=== PATIENT | male | born 1945 | race Caucasian/White ===

== ENCOUNTER 2018-02-25 06:45 | Day surgery (SDC) | payer MEDICARE ==
[~2018-02-25] VITALS: Ht 177.8 cm; Wt 133.0 kg
[2018-02-25] VITALS (20 sets, daily range): BP systolic 93–140; BP diastolic 45–83
[~2018-02-25 06:45] MED LIST: BUDE10.2 INH; COU4T PO; DILT360C29 PO; FURO40TA4 PO; METO50TA7 PO; POTA20TA10 PO; SIMV40TA4 PO
[2018-02-25] MEDS ORDERED: fentaNYL/PF 50MCG/1 ML 2ML syringe IV ONE (07:05)
[2018-02-25] MEDS ORDERED: normal saline 1000ml 1,000 ML IV SCH (07:05)
[2018-02-25] MEDS ORDERED: MIDAZolam 5mg/ml 2ml vial IV ONE (07:05)
[2018-02-25] MEDS ORDERED: DIGO125T PO (07:19)
[2018-02-25] MEDS ORDERED: TIOT18CA3 INH (07:19)
[2018-02-25] MEDS ORDERED: DABI150C PO (07:19)
[2018-02-25] MEDS ORDERED: AMIO200T40 PO (07:19)
[2018-02-25] MEDS ORDERED: IPRA4AER IH (07:19)
[2018-02-25] MEDS ORDERED: ALLO100T PO (07:19)
[2018-02-25] MEDS ORDERED: VERA240T PO (07:19)
[2018-02-25] MEDS ORDERED: PIRO20CA2 PO (07:19)
[2018-02-25] MEDS ORDERED: FLO0.4C PO (07:19)
[2018-02-25 07:46] LABS: BASOPHILS % (AUTO) 0.3 % (0-1); EOSINOPHILS # (AUTO) 0.1 X10'3 (0-0.9); EOSINOPHILS % (AUTO) 2.5 % (0-6); HEMATOCRIT 44.2 % (42.0-52.0); HEMOGLOBIN 14.7 g/dl (14.0-17.9); LYMPHOCYTES # (AUTO) 0.8 X10'3 (1.1-4.8); LYMPHOCYTES % (AUTO) 14.4 % (21-51); MEAN CORPUSCULAR HEMOGLOBIN 31.6 PG (27.0-31.0); MEAN CORPUSCULAR HGB CONC 33.3 % (33.0-36.5); MEAN CORPUSCULAR VOLUME 94.8 FL (78-98); MEAN PLATELET VOLUME 9.8 FL (7.4-10.4); MONOCYTES # (AUTO) 0.7 X10'3 (0-0.9); NEUTROPHILS # (AUTO) 3.7 X10'3 (1.8-7.7); NEUTROPHILS % (AUTO) 69.8 % (42-75); PLATELET COUNT 142 X10'3 (140-440); RED BLOOD COUNT 4.67 X10'6 (4.70-6.10); RED CELL DISTRIBUTION WIDTH 17.1 % (11.5-14.5); WHITE BLOOD COUNT 5.4 X10'3 (4.5-11.0)
[2018-02-25 07:53] LABS: INR 1.5 INR; PROTHROMBIN TIME 15.1 SECONDS (9.0-12.0)
[2018-02-25 08:05] LABS: ALBUMIN 3.6 G/DL (3.4-5.0); ANION GAP 10 (8-16); BLOOD UREA NITROGEN 27 MG/DL (7-18); BUN/CREATININE RATIO 15.3 (5.4-32.0); CALCIUM 8.7 MG/DL (8.5-10.1); CHLORIDE 104 MMOL/L (99-107); CREATININE 1.77 MG/DL (0.60-1.10); GLUCOSE 124 MG/DL (70-104); MAGNESIUM 2.1 MG/DL (1.5-2.4); POTASSIUM 3.8 MMOL/L (3.5-5.1); SODIUM 140 MMOL/L (135-145); TOTAL CARBON DIOXIDE 25.8 MMOL/L (24-32); eGFR 38 ML/MIN
== END 2018-02-25 11:42 | disposition home or self-care (01) ==
LOC: SSTAY O 06:45
PROVIDERS: ATTEND Internal Medicine Cardiovascular Disease
DX: I48.91 Unspecified atrial fibrillation (principal); J44.9 Chronic obstructive pulmonary disease, unspecified; G47.30 Sleep apnea, unspecified; Z85.46 Personal history of malignant neoplasm of prostate; Z85.118 Personal history of other malignant neoplasm of bronchus and lung; Z85.51 Personal history of malignant neoplasm of bladder; Z87.891 Personal history of nicotine dependence; Z98.49 Cataract extraction status, unspecified eye; Z79.899 Other long term (current) drug therapy; Z98.890 Other specified postprocedural states
CPT/HCPCS: 36415; 80048; 83735; 85025; 85610; 92960; 93005; J2250; J3010

== ENCOUNTER 2018-07-11 05:39 | Day surgery (SDC) | payer MEDICARE ==
[2018-07-11] VITALS (14 sets, daily range): BP systolic 98–173; BP diastolic 45–102
[~2018-07-11] VITALS: Ht 177.8 cm; Wt 174.0 kg
[~2018-07-11 05:39] MED LIST changes: +ALLO100T PO; +AMIO200T40 PO; -COU4T PO; +DABI150C PO; +DIGO125T PO; -DILT360C29 PO; +FLO0.4C PO; +IPRA4AER IH; -METO50TA7 PO; +PIRO20CA2 PO; +TIOT18CA3 INH; +VERA240T PO
[2018-07-11] MEDS ORDERED: diphenhydrAMINE 25mg capsule PO PRN (06:10)
[2018-07-11] MEDS ORDERED: sod bicarbonate 150mEq in D5W 1,150 ML IV ONE (06:10)
[2018-07-11 07:35] LABS: BASOPHILS % (AUTO) 1.1 % (0-1); EOSINOPHILS # (AUTO) 0.1 X10'3 (0-0.9); EOSINOPHILS % (AUTO) 3.5 % (0-6); HEMATOCRIT 38.2 % (42.0-52.0); HEMOGLOBIN 12.7 g/dl (14.0-17.9); LYMPHOCYTES # (AUTO) 0.5 X10'3 (1.1-4.8); LYMPHOCYTES % (AUTO) 11.5 % (21-51); MEAN CORPUSCULAR HEMOGLOBIN 31.2 PG (27.0-31.0); MEAN CORPUSCULAR HGB CONC 33.1 g/dL (33.0-36.5); MEAN CORPUSCULAR VOLUME 94.2 FL (78-98); MEAN PLATELET VOLUME 9.5 FL (7.4-10.4); MONOCYTES # (AUTO) 0.6 X10'3 (0-0.9); MONOCYTES % (AUTO) 14.3 % (2-12); NEUTROPHILS # (AUTO) 2.9 X10'3 (1.8-7.7); NEUTROPHILS % (AUTO) 69.6 % (42-75); PLATELET COUNT 155 X10'3 (140-440); RED BLOOD COUNT 4.05 X10'6 (4.70-6.10); RED CELL DISTRIBUTION WIDTH 15.6 % (11.5-14.5); WHITE BLOOD COUNT 4.2 X10'3 (4.5-11.0)
[2018-07-11 07:46] LABS: ANION GAP 9 (8-16); BLOOD UREA NITROGEN 25 MG/DL (7-18); BUN/CREATININE RATIO 18.1 (5.4-32.0); CALCIUM 8.4 MG/DL (8.5-10.1); CHLORIDE 109 MMOL/L (99-107); CREATININE 1.38 MG/DL (0.60-1.10); GLUCOSE 135 MG/DL (70-104); SODIUM 142 MMOL/L (135-145); TOTAL CARBON DIOXIDE 24.5 MMOL/L (24-32); eGFR 51 ML/MIN
[2018-07-11 07:49] LABS: INR 1.1 INR; PROTHROMBIN TIME 11.5 SECONDS (9.0-12.0)
[2018-07-11] MEDS ORDERED: LIDOcaine 1% (10mg/ml)w/preservative injection 20ml MDV ONE (07:55)
[2018-07-11] MEDS ORDERED: fentaNYL/PF 50MCG/1 ML 2ML syringe ONE (07:55)
[2018-07-11] MEDS ORDERED: midazolam 2 mg/2 ml injection ONE ×3 (07:55→08:45)
[2018-07-11] MEDS ORDERED: iohexol 350 MG/ML 50ML vial IV ONE (07:55)
[2018-07-11] MEDS ORDERED: iohexol 350MG/ML 100ml bottle IV ONE (07:55)
[2018-07-11] MEDS ORDERED: ALBU8.5H8 INH (07:57)
== END 2018-07-11 15:30 | disposition home or self-care (01) ==
LOC: SSTAY O 05:39
PROVIDERS: ATTEND Internal Medicine Cardiovascular Disease
DX: I35.0 Nonrheumatic aortic (valve) stenosis (principal); J44.9 Chronic obstructive pulmonary disease, unspecified; I48.2 Chronic atrial fibrillation; G47.30 Sleep apnea, unspecified; Z85.51 Personal history of malignant neoplasm of bladder; Z85.118 Personal history of other malignant neoplasm of bronchus and lung; Z98.890 Other specified postprocedural states; Z79.899 Other long term (current) drug therapy; Z98.49 Cataract extraction status, unspecified eye; Z87.891 Personal history of nicotine dependence
CPT/HCPCS: 36415; 80048; 83735; 85025; 85610; 93460; 99152; 99153; A6257; J1644; J2001; J2250; J3010; Q0163; Q9967; 93005; A4620; C1760; C1769; C1894

== ENCOUNTER 2020-10-15 06:10 | Day surgery (SDC) | payer MEDICARE ==
[~2020-10-15] VITALS: Ht 177.8 cm; Wt 132.0 kg
[2020-10-15] VITALS (10 sets, daily range): BP systolic 123–169; BP diastolic 72–95
[~2020-10-15 06:10] MED LIST changes: +ALBU8.5H8 INH; -AMIO200T40 PO; -FLO0.4C PO; -IPRA4AER IH; +SIMV-45 PO; -SIMV40TA4 PO
[2020-10-15] MEDS ORDERED: diphenhydrAMINE 25mg capsule PO PRN (06:35)
[2020-10-15] MEDS ORDERED: normal saline 1,000 ML IV SCH (06:35)
[2020-10-15 07:07] LABS: BASOPHILS % (AUTO) 0.8 % (0-1); EOSINOPHILS # (AUTO) 0.2 X10'3 (0-0.9); EOSINOPHILS % (AUTO) 3.8 % (0-6); HEMATOCRIT 42.8 % (42.0-52.0); HEMOGLOBIN 14.3 g/dl (14.0-17.9); LYMPHOCYTES # (AUTO) 0.5 X10'3 (1.1-4.8); MEAN CORPUSCULAR HEMOGLOBIN 31.8 PG (27.0-31.0); MEAN CORPUSCULAR HGB CONC 33.4 g/dL (33.0-36.5); MEAN CORPUSCULAR VOLUME 95.1 FL (78-98); MEAN PLATELET VOLUME 9.9 FL (7.4-10.4); MONOCYTES # (AUTO) 0.6 X10'3 (0-0.9); MONOCYTES % (AUTO) 13.5 % (2-12); NEUTROPHILS # (AUTO) 3.2 X10'3 (1.8-7.7); NEUTROPHILS % (AUTO) 70.9 % (42-75); PLATELET COUNT 104 X10'3 (140-440); RED CELL DISTRIBUTION WIDTH 15.1 % (11.5-14.5); WHITE BLOOD COUNT 4.5 X10'3 (4.5-11.0)
[2020-10-15] MEDS ORDERED: AMIO200T61 PO (07:11)
[2020-10-15] MEDS ORDERED: ASPI81TA52 PO (07:11)
[2020-10-15] MEDS ORDERED: METO50TA17 PO (07:11)
[2020-10-15] MEDS ORDERED: FURO-150 PO (07:11)
[2020-10-15] MEDS ORDERED: Amlodipine PO (07:11)
[2020-10-15] MEDS ORDERED: PANT40TA54 PO (07:11)
[2020-10-15] MEDS ORDERED: FLO0.4C PO (07:11)
[2020-10-15 07:13] LABS: ALBUMIN 3.8 G/DL (3.4-5.0); ANION GAP 11 (8-16); BLOOD UREA NITROGEN 29 MG/DL (7-18); BUN/CREATININE RATIO 16.5 (5.4-32.0); CALCIUM 8.7 MG/DL (8.5-10.1); CHLORIDE 107 MMOL/L (99-107); CREATININE 1.76 MG/DL (0.60-1.10); GLUCOSE 98 MG/DL (70-104); MAGNESIUM 2.1 MG/DL (1.5-2.4); POTASSIUM 4.2 MMOL/L (3.5-5.1); SODIUM 143 MMOL/L (135-145); TOTAL CARBON DIOXIDE 24.8 MMOL/L (24-32); eGFR 38 ML/MIN
[2020-10-15] MEDS ORDERED: sodium bicarbonate (8.4%) inj. 150 ML in dextrose 5%-water 1,000 ML IV ONE (07:40)
[2020-10-15] MEDS ORDERED: midazolam 1 mg/ML 2ml injection ONE ×5 (08:47→09:59)
[2020-10-15] MEDS ORDERED: LIDOcaine 1% W/epiNEPHrine 1:100,000 20ml vial ONE (08:48)
[2020-10-15] MEDS ORDERED: iohexol 350 MG/ML 50ML vial IV ONE (08:48)
[2020-10-15] MEDS ORDERED: fentaNYL/PF 50MCG/1 ML 2ML syringe ONE (08:48)
[2020-10-15] MEDS ORDERED: iohexol 350MG/ML 100ml bottle IV ONE ×2 (08:48→09:47)
[2020-10-15] MEDS ORDERED: LIDOcaine 1% (10mg/ml)w/preservative injection 20ml MDV ONE (08:51)
[2020-10-15] MEDS ORDERED: proCHLORperazine 10 MG/2 ml inj ONE (09:58)
[2020-10-15] MEDS ORDERED: HYDROcodone/acetaminophen 10/325mg tab PO PRN (11:20)
[2020-10-15] MEDS ORDERED: normal saline 1000ml 1,000 ML IV SCH (11:20)
[2020-10-15] MEDS ORDERED: proCHLORperazine 10 MG/2 ml inj IV PRN (11:20)
[2020-10-15] MEDS ORDERED: ondansetron/PF 4mg/2ml inj IV PRN (11:20)
[2020-10-15] MEDS ORDERED: HYDROcodone/acetaminophen 5mg/325mg tablet PO PRN (11:20)
== END 2020-10-15 15:40 | disposition home or self-care (01) ==
LOC: SSTAY O 06:10
PROVIDERS: ATTEND Internal Medicine Cardiovascular Disease
DX: I70.211 Atherosclerosis of native arteries of extremities with intermittent claudication, right leg (principal); J44.9 Chronic obstructive pulmonary disease, unspecified; I48.20 Chronic atrial fibrillation, unspecified; N18.30 Chronic kidney disease, stage 3 unspecified; G47.30 Sleep apnea, unspecified; E66.01 Morbid (severe) obesity due to excess calories; Z68.41 Body mass index [BMI] 40.0-44.9, adult; Z87.891 Personal history of nicotine dependence; Z79.899 Other long term (current) drug therapy; Z85.51 Personal history of malignant neoplasm of bladder; Z85.46 Personal history of malignant neoplasm of prostate; Z85.118 Personal history of other malignant neoplasm of bronchus and lung; Z98.890 Other specified postprocedural states; Z98.41 Cataract extraction status, right eye
CPT/HCPCS: 36415; 37220; 80048; 83735; 85025; 85610; 93005; 99152; 99153; C1760; C1769; C1894; J0780; J1644; J2001; J2250; J3010; Q0163; Q9967; 75630; A4620; A6258

== ENCOUNTER 2020-10-22 07:27 | Day surgery (SDC) | payer MEDICARE ==
[~2020-10-22] VITALS: Ht 193 cm; Wt 133.0 kg
[~2020-10-22 07:27] MED LIST changes: +AMIO200T61 PO; +ASPI81TA52 PO; +Amlodipine PO; -DIGO125T PO; +FLO0.4C PO; +FURO-150 PO; -FURO40TA4 PO; +METO50TA17 PO; +PANT40TA54 PO; -PIRO20CA2 PO; -VERA240T PO
[2020-10-22] MEDS ORDERED: sodium bicarbonate (8.4%) inj. 150 ML in dextrose 5%-water 1,000 ML IV ONE (07:50)
[2020-10-22 08:00] VITALS: BP 120/73
[2020-10-22] MEDS ORDERED: iohexol 350 MG/ML 50ML vial IV ONE (09:13)
[2020-10-22] MEDS ORDERED: iohexol 350MG/ML 100ml bottle IV ONE (09:14)
[2020-10-22 10:50] VITALS: BP 161/84
[2020-10-22 13:52] VITALS: BP 125/71
== END 2020-10-22 14:00 | disposition home or self-care (01) ==
LOC: SSTAY O 07:27
PROVIDERS: ATTEND Internal Medicine Cardiovascular Disease
DX: I70.213 Atherosclerosis of native arteries of extremities with intermittent claudication, bilateral legs (principal); I83.91 Asymptomatic varicose veins of right lower extremity; I51.7 Cardiomegaly
CPT/HCPCS: 75635; Q9967

== ENCOUNTER 2020-12-15 08:15 | Emergency (ER) | payer OTHER, MEDICARE ==
[~2020-12-15] VITALS: Ht 177.8 cm; Wt 180.0 kg
[~2020-12-15 08:15] MED LIST changes: +ALBU8.5H17 INH; -ALBU8.5H8 INH; -ALLO100T PO; +ALLO300T8 PO; -AMIO200T61 PO; -Amlodipine PO; -FLO0.4C PO; -FURO-150 PO; -POTA20TA10 PO; +VERA120T2 PO
[2020-12-15 08:35] VITALS: BP 122/75
[2020-12-15] MEDS ORDERED: LIDOcaine 2% 10ml TOPICAL JELLY (Urojet) TP ONE (09:45)
[2020-12-15 10:39] LABS: CLARITY,URINE SLIGHTLY CLOUDY (Clear); COLOR,URINE YELLOW (Yellow); GLUCOSE, URINE NEGATIVE (Neg); KETONES,URINE NEGATIVE (Neg); LEUKOCYTE ESTERASE ,URINE NEGATIVE (Neg); NITRITES, URINE NEGATIVE (Neg); OCCULT BLOOD,URINE TRACE-LYSED (Neg); PH,URINE 6.5 (4.8-8.0); PROTEIN,URINE NEGATIVE (Neg)
[2020-12-15 10:44] LABS: UA COLLECTION TYPE FOLEY CATH
[2020-12-15 10:45] LABS: MUCUS STRANDS MANY /LPF (Neg); SQUAMOUS EPITHELIAL CELL,UR FEW /LPF (FEW)
[2020-12-15 10:47] LABS: BACTERIA,URINE NONE SEEN /HPF (Neg); RBC,URINE 0-2 /HPF (0-2); TRANSITIONAL EPI CELLS,URINE FEW /HPF; WBC,URINE 0-4 /HPF (0-4)
[2020-12-16] MEDS ORDERED: POTA10TA36 PO (06:00)
[2020-12-16] MEDS ORDERED: FURO-150 PO (06:00)
== END 2020-12-15 11:23 | disposition home or self-care (01) ==
LOC: ER 08:16
DX: N50.89 Other specified disorders of the male genital organs (principal); R33.9 Retention of urine, unspecified; R42 Dizziness and giddiness; R10.30 Lower abdominal pain, unspecified; Z79.82 Long term (current) use of aspirin; Z79.899 Other long term (current) drug therapy
CPT/HCPCS: 51702; 81001; 99284

== ENCOUNTER 2020-12-16 04:09 | Emergency (ER) | payer OTHER, MEDICARE ==
[~2020-12-16] VITALS: Ht 177.8 cm; Wt 129.6 kg
[2020-12-16 04:10] VITALS: BP 119/68
[2020-12-16 04:28] LABS: BASOPHILS % (AUTO) 0.4 % (0-1); EOSINOPHILS # (AUTO) 0.1 X10'3 (0-0.9); EOSINOPHILS % (AUTO) 2.2 % (0-6); HEMATOCRIT 28.5 % (42.0-52.0); HEMOGLOBIN 9.3 g/dl (14.0-17.9); LYMPHOCYTES # (AUTO) 0.3 X10'3 (1.1-4.8); LYMPHOCYTES % (AUTO) 6.4 % (21-51); MEAN CORPUSCULAR HEMOGLOBIN 31.9 PG (27.0-31.0); MEAN CORPUSCULAR HGB CONC 32.8 g/dL (33.0-36.5); MEAN CORPUSCULAR VOLUME 97.4 FL (78-98); MEAN PLATELET VOLUME 9.8 FL (7.4-10.4); MONOCYTES # (AUTO) 0.6 X10'3 (0-0.9); MONOCYTES % (AUTO) 13.2 % (2-12); NEUTROPHILS # (AUTO) 3.8 X10'3 (1.8-7.7); NEUTROPHILS % (AUTO) 77.8 % (42-75); PLATELET COUNT 87 X10'3 (140-440); RED BLOOD COUNT 2.92 X10'6 (4.70-6.10); RED CELL DISTRIBUTION WIDTH 16.7 % (11.5-14.5); WHITE BLOOD COUNT 4.9 X10'3 (4.5-11.0)
--- NOTE | 2020-12-16 04:40 | NUR ---
CALL FROM [employer] [employer] WHO REQUESTED US TO BE PERFORMED AT 0530. DR. MODI NOTIFIED.
[2020-12-16 04:42] LABS: ALANINE AMINOTRANSFERASE 16 U/L (12-78); ALBUMIN 2.8 G/DL (3.4-5.0); ALBUMIN/GLOBULIN RATIO 0.8 (1.1-1.5); ALKALINE PHOSPHATASE 65 IU/L (46-116); ANION GAP 13 (8-16); ASPARTATE AMINO TRANSFERASE 13 U/L (10-37); BILIRUBIN,TOTAL 0.6 MG/DL (0.1-1.0); BLOOD UREA NITROGEN 22 MG/DL (7-18); BUN/CREATININE RATIO 16.9 (5.4-32.0); CALCIUM 7.7 MG/DL (8.5-10.1); CHLORIDE 112 MMOL/L (99-107); GLUCOSE 111 MG/DL (70-104); POTASSIUM 3.9 MMOL/L (3.5-5.1); SODIUM 147 MMOL/L (135-145); TOTAL CARBON DIOXIDE 22.3 MMOL/L (24-32); TOTAL PROTEIN 6.3 G/DL (6.4-8.2); eGFR 54 ML/MIN
[2020-12-16] MEDS ORDERED: POTA10TA36 PO (06:00)
[2020-12-16] MEDS ORDERED: FURO-150 PO (06:00)
== END 2020-12-16 06:57 | disposition home or self-care (01) ==
LOC: ER 04:10
DX: N50.89 Other specified disorders of the male genital organs (principal); N50.812 Left testicular pain; N50.811 Right testicular pain; I48.91 Unspecified atrial fibrillation; Z79.82 Long term (current) use of aspirin; Z79.899 Other long term (current) drug therapy
CPT/HCPCS: 36415; 76870; 80053; 83880; 85025; 93976; 99284

== ENCOUNTER 2020-12-18 12:25 | Emergency (ER) | payer OTHER, MEDICARE ==
[~2020-12-18] VITALS: Ht 177.8 cm; Wt 127.3 kg
[~2020-12-18 12:25] MED LIST changes: +FURO-150 PO; +POTA10TA36 PO
[2020-12-18 13:17] LABS: BASOPHILS % (AUTO) 0.4 % (0-1); EOSINOPHILS # (AUTO) 0.1 X10'3 (0-0.9); EOSINOPHILS % (AUTO) 2.3 % (0-6); HEMATOCRIT 28.2 % (42.0-52.0); HEMOGLOBIN 9.3 g/dl (14.0-17.9); LYMPHOCYTES # (AUTO) 0.4 X10'3 (1.1-4.8); LYMPHOCYTES % (AUTO) 6.4 % (21-51); MEAN CORPUSCULAR HEMOGLOBIN 32.1 PG (27.0-31.0); MEAN CORPUSCULAR HGB CONC 32.8 g/dL (33.0-36.5); MEAN CORPUSCULAR VOLUME 97.7 FL (78-98); MEAN PLATELET VOLUME 10.2 FL (7.4-10.4); MONOCYTES # (AUTO) 0.7 X10'3 (0-0.9); MONOCYTES % (AUTO) 12.1 % (2-12); NEUTROPHILS # (AUTO) 4.7 X10'3 (1.8-7.7); NEUTROPHILS % (AUTO) 78.8 % (42-75); PLATELET COUNT 105 X10'3 (140-440); RED BLOOD COUNT 2.89 X10'6 (4.70-6.10); RED CELL DISTRIBUTION WIDTH 16.7 % (11.5-14.5); WHITE BLOOD COUNT 5.9 X10'3 (4.5-11.0)
[2020-12-18 13:29] LABS: ALANINE AMINOTRANSFERASE 12 U/L (12-78); ALBUMIN 2.9 G/DL (3.4-5.0); ALBUMIN/GLOBULIN RATIO 0.9 (1.1-1.5); ALKALINE PHOSPHATASE 71 IU/L (46-116); ANION GAP 10 (8-16); ASPARTATE AMINO TRANSFERASE 10 U/L (10-37); BILIRUBIN,TOTAL 0.5 MG/DL (0.1-1.0); BLOOD UREA NITROGEN 26 MG/DL (7-18); BUN/CREATININE RATIO 17.1 (5.4-32.0); CALCIUM 7.4 MG/DL (8.5-10.1); CHLORIDE 110 MMOL/L (99-107); CREATININE 1.52 MG/DL (0.60-1.10); GLUCOSE 124 MG/DL (70-104); POTASSIUM 3.8 MMOL/L (3.5-5.1); SODIUM 143 MMOL/L (135-145); TOTAL CARBON DIOXIDE 23.2 MMOL/L (24-32); TOTAL PROTEIN 6.3 G/DL (6.4-8.2); eGFR 45 ML/MIN
[2020-12-18 13:48] VITALS: BP 118/71
== END 2020-12-18 13:51 | disposition home or self-care (01) ==
LOC: ER 12:26
DX: N43.3 Hydrocele, unspecified (principal); N50.89 Other specified disorders of the male genital organs; I48.91 Unspecified atrial fibrillation; Z79.82 Long term (current) use of aspirin; Z79.899 Other long term (current) drug therapy
CPT/HCPCS: 36415; 80053; 83605; 84145; 85025; 87040; 99283

== ENCOUNTER 2020-12-25 20:49 | Inpatient (IN) | payer MEDICARE ==
[~2020-12-25] VITALS: Ht 177.8 cm; Wt 130.4 kg
[2020-12-25] MEDS ORDERED: diltiazem 5mg/ml 5ml inj. IV ONE ×2 (22:25→23:30)
[2020-12-25 22:37] LABS: BASOPHILS % (AUTO) 0.4 % (0-1); EOSINOPHILS % (AUTO) 0.3 % (0-6); HEMATOCRIT 28.5 % (42.0-52.0); HEMOGLOBIN 9.3 g/dl (14.0-17.9); LYMPHOCYTES # (AUTO) 0.2 X10'3 (1.1-4.8); LYMPHOCYTES % (AUTO) 4.3 % (21-51); MEAN CORPUSCULAR HEMOGLOBIN 30.7 PG (27.0-31.0); MEAN CORPUSCULAR HGB CONC 32.6 g/dL (33.0-36.5); MEAN CORPUSCULAR VOLUME 94.1 FL (78-98); MONOCYTES # (AUTO) 0.7 X10'3 (0-0.9); MONOCYTES % (AUTO) 14.4 % (2-12); NEUTROPHILS # (AUTO) 4.2 X10'3 (1.8-7.7); NEUTROPHILS % (AUTO) 80.6 % (42-75); PLATELET COUNT 128 X10'3 (140-440); RED BLOOD COUNT 3.02 X10'6 (4.70-6.10); RED CELL DISTRIBUTION WIDTH 16.4 % (11.5-14.5); WHITE BLOOD COUNT 5.2 X10'3 (4.5-11.0)
[2020-12-25 23:07] LABS: ALANINE AMINOTRANSFERASE 16 U/L (12-78); ALBUMIN 2.5 G/DL (3.4-5.0); ALBUMIN/GLOBULIN RATIO 0.6 (1.1-1.5); ALKALINE PHOSPHATASE 62 IU/L (46-116); ANION GAP 10 (8-16); ASPARTATE AMINO TRANSFERASE 15 U/L (10-37); BILIRUBIN,TOTAL 0.6 MG/DL (0.1-1.0); BLOOD UREA NITROGEN 34 MG/DL (7-18); BUN/CREATININE RATIO 21.3 (5.4-32.0); CHLORIDE 105 MMOL/L (99-107); GLUCOSE 110 MG/DL (70-104); POTASSIUM 3.9 MMOL/L (3.5-5.1); SODIUM 137 MMOL/L (135-145); TOTAL CARBON DIOXIDE 22.4 MMOL/L (24-32); TOTAL PROTEIN 6.8 G/DL (6.4-8.2); eGFR 42 ML/MIN
[2020-12-26] MEDS: diltiazem-NS 100mg/100ml 100 ML IV SCH ×2 (00:08→12:41)
[2020-12-26] MEDS ORDERED: morphine 2 MG/ML inj. syringe IV PRN (02:00)
[2020-12-26] MEDS ORDERED: magnesium 4gm in 100ml NS 100 ML IV PRN (02:00)
[2020-12-26] MEDS ORDERED: HYDROcodone/acetaminophen 5mg/325mg tablet PO PRN (02:00)
[2020-12-26] MEDS ORDERED: magnesium 2GM in 50ml NS 50 ML IV PRN (02:00)
[2020-12-26] MEDS ORDERED: potassium Cl 20 mEq SR tablet PO PRN ×2 (02:00)
[2020-12-26] MEDS ORDERED: ondansetron/PF 4mg/2ml inj IV PRN (02:00)
[2020-12-26] MEDS ORDERED: potassium Cl 40MEQ/1/2NS 520ml 520 ML IV PRN ×2 (02:00)
[2020-12-26] MEDS ORDERED: magnesium Cl slow-release 64mg tablet PO PRN (02:00)
[2020-12-26] MEDS ORDERED: mag hydrox/Alum hydrox/simeth 30ml oral suspension PO PRN (02:00)
[2020-12-26] MEDS ORDERED: acetaminophen 325mg tablet PO PRN ×2 (02:00)
[2020-12-26] MEDS ORDERED: diltiazem-D5W 125mg/125ml 125 ML IV SCH (02:20)
[2020-12-26] MEDS ORDERED: FLO0.4C PO (03:19)
[2020-12-26] MEDS ORDERED: MULT-1219 PO (03:28)
[2020-12-26] MEDS ORDERED: MAGN250T11 PO (03:29)
[2020-12-26] MEDS ORDERED: ASCO-10 PO (03:32)
[2020-12-26] MEDS ORDERED: BUDE10.27 IH (03:34)
[2020-12-26] MEDS ORDERED: HYDR-3972 PO (03:36)
[2020-12-26 05:51] LABS: COLOR,URINE YELLOW (Yellow); GLUCOSE, URINE NEGATIVE (Neg); KETONES,URINE NEGATIVE (Neg); LEUKOCYTE ESTERASE ,URINE TRACE (Neg); NITRITES, URINE NEGATIVE (Neg); OCCULT BLOOD,URINE LARGE (Neg); PH,URINE 5.5 (4.8-8.0); PROTEIN,URINE TRACE mg/dl (Neg); UROBILINOGEN,URINE 0.2 E.U/dL (0.2-1.0)
[2020-12-26 05:58] LABS: CLARITY,URINE SLIGHTLY CLOUDY (Clear); UA COLLECTION TYPE CLN CATCH MIDSTREAM
[2020-12-26 05:59] LABS: BACTERIA,URINE NONE SEEN /HPF (Neg); SQUAMOUS EPITHELIAL CELL,UR FEW /LPF (FEW); WBC,URINE 0-4 /HPF (0-4); YEAST MODERATE /HPF (NEGATIVE)
[2020-12-26] MEDS ORDERED: heparin, porcine 5000 units/ml vial SQ SCH (08:00)
[2020-12-26] MEDS ORDERED: furosemide 40mg/4ml inj IV SCH (08:00)
[2020-12-26] MEDS: K and/or MAG REPLACEMENT MC SCH ×2 (08:00→20:00)
--- NOTE | 2020-12-26 10:41 | NUR ---
Wound vac all set. Patient reports difficulty concentrating and losing his train of thought. Patient is AOX4 and denied dizziness.
[2020-12-26] MEDS: albuterol 2.5 MG/3 ML nebule NEB SCH ×3 (11:00→21:05)
[2020-12-26] MEDS: azithromycin 250mg tablet PO SCH (12:39)
[2020-12-26] MEDS: CefTRIAXone/D5W-Rocephin 1gm 50 ML IV SCH (12:40)
[2020-12-26] MEDS: ipratropium 0.5 MG/2.5ML nebule NEB SCH ×2 (15:00→21:06)
[2020-12-26] MEDS ORDERED: normal saline 1000ML IV soln IVB ONE (15:40)
--- NOTE | 2020-12-26 19:20 | NUR ---
Patient in room PCU 3015. I have received report from Tara BURDICK in ER and had the opportunity to ask questions and assume patient care.
[2020-12-26 20:00] VITALS: BP 126/69
[2020-12-26] MEDS ORDERED: non-formulary drug (Budesonide/Formoterol Fumarate (Budesonide-Formoterol 80-4.5) 2 PUFFS) IH SCH (20:00)
--- NOTE | 2020-12-26 20:03 | NUR ---
PAGER ID: [phone] MESSAGE: Mary [id number] Luis M Gonzalez [id number] Pt came from ER, not on Cardizem drips or D5 1/2 NS Would you like patient to continue to be on the drips & fluid? PCU Kenyatta RN [phone]
--- NOTE | 2020-12-26 20:20 | NUR ---
Received report from ER nurse that patient supposed to be on Diltiazem drips 5ml/hr continuously but patient wasn't on Diltiazem drips when he got to the floor. Called to Dr. Good regarding to patient's Diltiazem drips, Dr. Good said that patient's HR now is controlled so drips can be off, drips can resume when patient's HR>100.
[2020-12-26] MEDS: pantoprazole 40mg Tablet.DR PO SCH (21:25)
[2020-12-26] MEDS: tamsulosin 0.4mg capsule PO SCH (21:25)
[2020-12-26] MEDS: dabigatran 150mg capsule PO SCH (21:26)
[2020-12-26] MEDS: metoprolol tartrate 50mg tablet PO SCH (21:26)
[2020-12-26 22:00] VITALS: BP 136/84
[2020-12-27] VITALS (7 sets, daily range): BP systolic 93–145; BP diastolic 54–78
[2020-12-27] MEDS: ipratropium 0.5 MG/2.5ML nebule NEB SCH ×4 (02:24→21:40)
--- NOTE | 2020-12-27 06:42 | NUR ---
Problems reprioritized. Patient report given, questions answered & plan of care reviewed with Matthieu RN at bedside.
--- NOTE | 2020-12-27 06:58 | NUR ---
Patient in room PCU 3015. I have received report from Kenyatta Garcia and had the opportunity to ask questions and assume patient care.
[2020-12-27 07:21] LABS: BASOPHILS % (AUTO) 0.4 % (0-1); EOSINOPHILS # (AUTO) 0.1 X10'3 (0-0.9); EOSINOPHILS % (AUTO) 1.7 % (0-6); HEMOGLOBIN 9.1 g/dl (14.0-17.9); LYMPHOCYTES # (AUTO) 0.2 X10'3 (1.1-4.8); LYMPHOCYTES % (AUTO) 4.4 % (21-51); MEAN CORPUSCULAR HEMOGLOBIN 30.9 PG (27.0-31.0); MEAN CORPUSCULAR HGB CONC 32.6 g/dL (33.0-36.5); MEAN CORPUSCULAR VOLUME 94.8 FL (78-98); MEAN PLATELET VOLUME 10.1 FL (7.4-10.4); MONOCYTES # (AUTO) 0.8 X10'3 (0-0.9); MONOCYTES % (AUTO) 15.6 % (2-12); NEUTROPHILS # (AUTO) 4.2 X10'3 (1.8-7.7); NEUTROPHILS % (AUTO) 77.9 % (42-75); PLATELET COUNT 136 X10'3 (140-440); RED BLOOD COUNT 2.96 X10'6 (4.70-6.10); RED CELL DISTRIBUTION WIDTH 16.6 % (11.5-14.5); WHITE BLOOD COUNT 5.4 X10'3 (4.5-11.0)
[2020-12-27 07:37] LABS: ALANINE AMINOTRANSFERASE 21 U/L (12-78); ALBUMIN 2.2 G/DL (3.4-5.0); ALBUMIN/GLOBULIN RATIO 0.6 (1.1-1.5); ALKALINE PHOSPHATASE 74 IU/L (46-116); ANION GAP 10 (8-16); ASPARTATE AMINO TRANSFERASE 24 U/L (10-37); BILIRUBIN,TOTAL 0.4 MG/DL (0.1-1.0); BLOOD UREA NITROGEN 26 MG/DL (7-18); BUN/CREATININE RATIO 17.6 (5.4-32.0); CALCIUM 7.6 MG/DL (8.5-10.1); CHLORIDE 104 MMOL/L (99-107); CREATININE 1.48 MG/DL (0.60-1.10); GLUCOSE 118 MG/DL (70-104); POTASSIUM 3.9 MMOL/L (3.5-5.1); SODIUM 137 MMOL/L (135-145); TOTAL CARBON DIOXIDE 23.1 MMOL/L (24-32); TOTAL PROTEIN 6.1 G/DL (6.4-8.2); eGFR 46 ML/MIN
[2020-12-27] MEDS: albuterol 2.5 MG/3 ML nebule NEB SCH ×4 (07:42→21:40)
[2020-12-27] MEDS: K and/or MAG REPLACEMENT MC SCH ×2 (08:00→20:00)
[2020-12-27] MEDS: atorvastatin 20mg tablet PO SCH (08:33)
[2020-12-27] MEDS: metoprolol tartrate 50mg tablet PO SCH ×2 (08:34→19:32)
[2020-12-27] MEDS: tamsulosin 0.4mg capsule PO SCH ×2 (08:34→19:32)
[2020-12-27] MEDS: furosemide 20MG tablet PO SCH (08:34)
[2020-12-27] MEDS: azithromycin 250mg tablet PO SCH (08:34)
[2020-12-27] MEDS: aspirin 81mg, enteric-coated 1 TAB TABLET.DR PO SCH (08:34)
[2020-12-27] MEDS: verapamil SR 120mg (sust. release) tab PO SCH (08:34)
[2020-12-27] MEDS: CefTRIAXone/D5W-Rocephin 1gm 50 ML IV SCH (08:35)
[2020-12-27] MEDS: pantoprazole 40mg Tablet.DR PO SCH ×2 (08:35→19:33)
[2020-12-27] MEDS: multivitamins, therapeutics tablet PO SCH (08:35)
[2020-12-27] MEDS: magnesium oxide 400mg tablet PO SCH (08:35)
[2020-12-27] MEDS: ascorbic acid 500mg tablet PO SCH (08:35)
[2020-12-27] MEDS: allopurinol 300 MG tablet PO SCH (10:04)
[2020-12-27] MEDS: dabigatran 150mg capsule PO SCH ×2 (10:04→19:31)
[2020-12-27] MEDS ORDERED: predniSONE 20 mg tablet PO ONE (10:05)
--- NOTE | 2020-12-27 13:22 | NUR ---
WOUND VAC EDUCATION PROVIDED BY WOUND CARE 1. Patient instructed to call the Wound Center or their Home Health Agency immediately if: * They notice a change in the color or amount of the fluid in the canister. * Their wound looks more red than usual or has a foul smell. * The skin around their wound looks reddened or irritated. * The dressing feels loose or appears to be loose. * They experience any increase or changes in their pain. * The alarm will not turn off. 2. Patient instructed that they should not be disconnected from suction for more than 2 hours at a time. * If they are not able to get the suction back on, they need to remove the dressing and take all of the foam out of the wound. * Then moisten sterile gauze with normal saline and place on/in the wound. * Change the dressing once a day until arrangements have been made to replace the wound vac dressing. 3. Patient instructed to turn the wound vac machine OFF and call 911 or go to the ED immediately if their canister fills rapidly with blood. 4. If any of these occur while in the hospital tell a nurse immediately. Addendum: 12/27/20 at 1323 by Fani Fleming RN Amended: Links added.
--- NOTE | 2020-12-27 16:35 | NUR ---
MD Teixeira PAGER ID: [phone] MESSAGE: Matthieu Ext [phone] PCU Pt [id number] Latasha Dowd GTT ordered, can this be dc'd Pt heart rate currently in 50-60's Afib bp 96/56 asymptomatic. please advise.
[2020-12-27] MEDS ORDERED: normal saline 500ml IV soln 500 ML IV ONE (17:00)
--- NOTE | 2020-12-27 17:01 | NUR ---
Telephone order from MD Teixeira. Stop Diltiazem GTT. Give IV bolus 500ml NS Now.
--- NOTE | 2020-12-27 18:27 | NUR ---
Patient in room PCU 3015B. I have received report from Matthieu BURDICK at bedside and had the opportunity to ask questions and assume patient care.
--- NOTE | 2020-12-27 18:52 | NUR ---
Problems reprioritized. Patient report given, questions answered & plan of care reviewed with Kenyatta BURDICK.
--- NOTE | 2020-12-27 21:35 | NUR ---
Patient arrived to the floor at 1900. VS: BP 106/65 HR 56 95% room air RR 12 Temp 97.9F. Patient is pleasant, A&O x 4. According to Dr. Morrow's Post Carotid Stent Orders, patient will be on IV 250ml/hr NS x 2 then 150ml/hr x1 Liter NS. Patient has an 18 RAC IV. Patient is currently stable. Will continue to monitor. Addendum: 12/27/20 at 2152 by Kenyatta Dietz RN Wrong patient documentation
[2020-12-28 02:00] VITALS: BP 136/74
[2020-12-28] MEDS: ipratropium 0.5 MG/2.5ML nebule NEB SCH (03:05)
--- NOTE | 2020-12-28 06:10 | NUR ---
Problems reprioritized. Patient report given, questions answered & plan of care reviewed with Shefali BURDICK at bedside.
--- NOTE | 2020-12-28 06:24 | NUR ---
Patient in room PCU 3015. I have received report from Kenyatta BURDICK and had the opportunity to ask questions and assume patient care.
[2020-12-28 07:00] VITALS: BP 113/80
[2020-12-28] MEDS: ipratropium/albuterol 3ml nebule NEB SCH ×2 (07:36→11:00)
[2020-12-28] MEDS: verapamil SR 120mg (sust. release) tab PO SCH (07:56)
[2020-12-28] MEDS: furosemide 20MG tablet PO SCH (07:56)
[2020-12-28] MEDS: aspirin 81mg, enteric-coated 1 TAB TABLET.DR PO SCH (07:56)
[2020-12-28] MEDS: tamsulosin 0.4mg capsule PO SCH (07:56)
[2020-12-28] MEDS: atorvastatin 20mg tablet PO SCH (07:56)
[2020-12-28] MEDS: CefTRIAXone/D5W-Rocephin 1gm 50 ML IV SCH (07:56)
[2020-12-28] MEDS: magnesium oxide 400mg tablet PO SCH (07:57)
[2020-12-28] MEDS: metoprolol tartrate 50mg tablet PO SCH (07:57)
[2020-12-28] MEDS: dabigatran 150mg capsule PO SCH (07:57)
[2020-12-28] MEDS: multivitamins, therapeutics tablet PO SCH (07:58)
[2020-12-28] MEDS: pantoprazole 40mg Tablet.DR PO SCH (07:58)
[2020-12-28] MEDS: ascorbic acid 500mg tablet PO SCH (07:58)
[2020-12-28] MEDS: allopurinol 300 MG tablet PO SCH (07:58)
[2020-12-28] MEDS: azithromycin 250mg tablet PO SCH (07:58)
[2020-12-28] MEDS ORDERED: predniSONE 20 mg tablet PO SCH (08:00)
[2020-12-28 08:46] LABS: BASOPHILS % (AUTO) 0.1 % (0-1); EOSINOPHILS % (AUTO) 0.3 % (0-6); HEMATOCRIT 28.3 % (42.0-52.0); HEMOGLOBIN 9.2 g/dl (14.0-17.9); LYMPHOCYTES # (AUTO) 0.2 X10'3 (1.1-4.8); LYMPHOCYTES % (AUTO) 6.3 % (21-51); MEAN CORPUSCULAR HEMOGLOBIN 30.5 PG (27.0-31.0); MEAN CORPUSCULAR HGB CONC 32.6 g/dL (33.0-36.5); MEAN CORPUSCULAR VOLUME 93.6 FL (78-98); MEAN PLATELET VOLUME 9.8 FL (7.4-10.4); MONOCYTES # (AUTO) 0.3 X10'3 (0-0.9); MONOCYTES % (AUTO) 6.7 % (2-12); NEUTROPHILS # (AUTO) 3.3 X10'3 (1.8-7.7); NEUTROPHILS % (AUTO) 86.6 % (42-75); PLATELET COUNT 137 X10'3 (140-440); RED BLOOD COUNT 3.02 X10'6 (4.70-6.10); RED CELL DISTRIBUTION WIDTH 16.5 % (11.5-14.5); WHITE BLOOD COUNT 3.9 X10'3 (4.5-11.0)
[2020-12-28] MEDS ORDERED: PRED10TA23 PO (08:57)
[2020-12-28] MEDS ORDERED: CEFD300C3 PO (08:57)
[2020-12-28 09:01] LABS: ALANINE AMINOTRANSFERASE 28 U/L (12-78); ALBUMIN 2.4 G/DL (3.4-5.0); ALBUMIN/GLOBULIN RATIO 0.6 (1.1-1.5); ALKALINE PHOSPHATASE 75 IU/L (46-116); ANION GAP 9 (8-16); ASPARTATE AMINO TRANSFERASE 21 U/L (10-37); BILIRUBIN,TOTAL 0.3 MG/DL (0.1-1.0); BLOOD UREA NITROGEN 32 MG/DL (7-18); BUN/CREATININE RATIO 19.8 (5.4-32.0); CHLORIDE 107 MMOL/L (99-107); CREATININE 1.62 MG/DL (0.60-1.10); GLUCOSE 149 MG/DL (70-104); MAGNESIUM 2.2 MG/DL (1.5-2.4); POTASSIUM 4.1 MMOL/L (3.5-5.1); SODIUM 140 MMOL/L (135-145); TOTAL PROTEIN 6.6 G/DL (6.4-8.2); eGFR 42 ML/MIN
[2020-12-28 11:00] VITALS: BP 122/66
== END 2020-12-28 11:50 | disposition home or self-care (01) | DRG 193 ==
LOC: ER 20:50 → ED HOLD 12-26 02:01 → PCU 3S 12-26 19:47
PROVIDERS: ADMIT Internal Medicine; ATTEND Family Medicine
PROC: B32T1ZZ Computerized Tomography (CT Scan) of Left Pulmonary Artery using Low Osmolar Contrast (ICD-10-PCS; principal; 2020-12-25)
PROC: B3201ZZ Computerized Tomography (CT Scan) of Thoracic Aorta using Low Osmolar Contrast (ICD-10-PCS; 2020-12-25)
PROC: B32S1ZZ Computerized Tomography (CT Scan) of Right Pulmonary Artery using Low Osmolar Contrast (ICD-10-PCS; 2020-12-25)
DX: J18.9 Pneumonia, unspecified organism (principal); I50.33 Acute on chronic diastolic (congestive) heart failure; I13.0 Hypertensive heart and chronic kidney disease with heart failure and stage 1 through stage 4 chronic kidney disease, or unspecified chronic kidney disease; E87.0 Hyperosmolality and hypernatremia; J44.1 Chronic obstructive pulmonary disease with (acute) exacerbation; Z68.41 Body mass index [BMI] 40.0-44.9, adult; J44.0 Chronic obstructive pulmonary disease with (acute) lower respiratory infection; D69.6 Thrombocytopenia, unspecified; E66.01 Morbid (severe) obesity due to excess calories; E78.00 Pure hypercholesterolemia, unspecified; E78.5 Hyperlipidemia, unspecified; Z20.822 Contact with and (suspected) exposure to COVID-19; I25.10 Atherosclerotic heart disease of native coronary artery without angina pectoris; I48.91 Unspecified atrial fibrillation; I73.9 Peripheral vascular disease, unspecified; J44.9 Chronic obstructive pulmonary disease, unspecified; N18.30 Chronic kidney disease, stage 3 unspecified; Z66 Do not resuscitate; Z79.01 Long term (current) use of anticoagulants; Z85.118 Personal history of other malignant neoplasm of bronchus and lung; Z95.0 Presence of cardiac pacemaker; Z71.3 Dietary counseling and surveillance
CPT/HCPCS: 36415; 71045; 71275; 80053; 81001; 83605; 83735; 83880; 84443; 84484; 85025; 87040; 87081; 87088; 87635; 93005; 94640; 94760; 97116; 97161; 97530; 99285; G0378; J0696; J1644; J1940; J3490; J7040; J7512

== ENCOUNTER 2022-01-09 07:29 | Outpatient (CLI) | payer MEDICARE ==
[~2022-01-09] VITALS: Ht 177.8 cm; Wt 111.1 kg
[~2022-01-09 07:29] MED LIST changes: +ASCO-10 PO; -BUDE10.2 INH; +BUDE10.27 IH; +FLO0.4C PO; +HYDR-3972 PO; +MAGN250T11 PO; +MULT-1219 PO; +POTA-206 PO; -POTA10TA36 PO
[2022-01-09] MEDS ORDERED: sodium bicarbonate (8.4%) inj. 150 ML in dextrose 5%-water 1,000 ML IV ONE (07:50)
[2022-01-09 08:15] VITALS: BP 122/80
[2022-01-09] MEDS ORDERED: POTA-82 PO (08:56)
[2022-01-09] MEDS ORDERED: DIGO125T97 PO (08:56)
[2022-01-09] MEDS ORDERED: FURO-150 PO (08:56)
--- NOTE | 2022-01-09 09:30 | NUR ---
Pt taken via WC to CTA Addendum: 01/09/22 at 1258 by Iam Hughes RN Amended: Links added.
[2022-01-09] MEDS ORDERED: iohexol 350MG/ML 100ml bottle IV ONE (09:31)
--- NOTE | 2022-01-09 09:45 | NUR ---
Pt returned from CTA via W/C Addendum: 01/09/22 at 1258 by Iam Hughes RN Amended: Links added.
[2022-01-09 13:00] VITALS: BP 130/65
== END 2022-01-09 13:15 | disposition home or self-care (01) ==
LOC: SSTAY O 07:29
PROVIDERS: ATTEND Internal Medicine Cardiovascular Disease
DX: I70.202 Unspecified atherosclerosis of native arteries of extremities, left leg (principal); I74.5 Embolism and thrombosis of iliac artery; I70.213 Atherosclerosis of native arteries of extremities with intermittent claudication, bilateral legs; I51.7 Cardiomegaly; K76.0 Fatty (change of) liver, not elsewhere classified; R16.0 Hepatomegaly, not elsewhere classified; K82.8 Other specified diseases of gallbladder; K86.89 Other specified diseases of pancreas; I70.0 Atherosclerosis of aorta; I70.1 Atherosclerosis of renal artery; K59.00 Constipation, unspecified; K57.30 Diverticulosis of large intestine without perforation or abscess without bleeding; K44.9 Diaphragmatic hernia without obstruction or gangrene; Z98.890 Other specified postprocedural states
CPT/HCPCS: 75635; J3490; J7070; Q9967

== ENCOUNTER 2022-02-20 08:39 | Outpatient (CLI) | payer MEDICARE ==
[~2022-02-20 08:39] MED LIST changes: -ASCO-10 PO; -BUDE10.27 IH; +DIGO125T97 PO; -HYDR-3972 PO; -MAGN250T11 PO; -MULT-1219 PO; -POTA-206 PO; +POTA-82 PO; -VERA120T2 PO
== END 2022-02-20 23:59 | disposition home or self-care (01) ==
LOC: VAS 08:39
PROVIDERS: ATTEND Surgery
DX: I70.203 Unspecified atherosclerosis of native arteries of extremities, bilateral legs (principal)
CPT/HCPCS: 93922; 93925

== ENCOUNTER 2022-03-17 09:45 | Emergency (ER) | payer MEDICARE | END 2022-03-17 11:57 | disposition left against medical advice (07) | LOC: ER 09:45 | DX: R42 Dizziness and giddiness (principal); Z53.21 Procedure and treatment not carried out due to patient leaving prior to being seen by health care provider ==

== ENCOUNTER 2022-06-15 08:35 | Outpatient (CLI) | payer MEDICARE ==
[2022-06-12 12:13] LABS: ALANINE AMINOTRANSFERASE 15 U/L (12-78); ALBUMIN 3.6 G/DL (3.4-5.0); ALKALINE PHOSPHATASE 61 IU/L (46-116); ANION GAP 10 (8-16); ASPARTATE AMINO TRANSFERASE 15 U/L (10-37); BILIRUBIN,TOTAL 0.5 MG/DL (0.1-1.0); BLOOD UREA NITROGEN 29 MG/DL (7-18); BUN/CREATININE RATIO 23.2 (5.4-32.0); CHLORIDE 107 MMOL/L (99-107); CREATININE 1.25 MG/DL (0.60-1.10); GLUCOSE 116 MG/DL (70-104); POTASSIUM 4.6 MMOL/L (3.5-5.1); SODIUM 140 MMOL/L (135-145); TOTAL CARBON DIOXIDE 23.5 MMOL/L (24-32); TOTAL PROTEIN 7.3 G/DL (6.4-8.2); eGFR 56 ML/MIN
[2022-06-15] MEDS ORDERED: iohexol 350 MG/ML 50ML vial IV ONE (08:43)
[2022-06-15] MEDS ORDERED: iohexol 350MG/ML 100ml bottle IV ONE (08:44)
== END 2022-06-15 23:59 | disposition home or self-care (01) ==
LOC: RAD 08:35
PROVIDERS: ATTEND Surgery
DX: I74.5 Embolism and thrombosis of iliac artery (principal); I74.3 Embolism and thrombosis of arteries of the lower extremities; I73.9 Peripheral vascular disease, unspecified
CPT/HCPCS: 36415; 75635; 80053; J3490; Q9967

== ENCOUNTER 2022-12-17 04:19 | Emergency (ER) | payer OTHER, MEDICARE ==
[~2022-12-17] VITALS: Ht 177.8 cm; Wt 108.2 kg
[~2022-12-17 04:19] MED LIST changes: +POTA-366 PO; -POTA-82 PO
[2022-12-17 06:46] VITALS: TEMP 98.7
[2022-12-17] MEDS ORDERED: ketorolac trometh. 30mg/ml inj. IV STA (06:46)
[2022-12-17] MEDS ORDERED: ketorolac trometh inj. 60 MG/2 ML VIAL IM ONE (08:00)
[2022-12-17 08:11] LABS: BASOPHILS % (AUTO) 0.3 % (0-1); EOSINOPHILS % (AUTO) 0.5 % (0-6); HEMATOCRIT 37.1 % (42.0-52.0); HEMOGLOBIN 12.1 g/dl (14.0-17.9); LYMPHOCYTES # (AUTO) 0.2 X10'3 (1.1-4.8); LYMPHOCYTES % (AUTO) 5.7 % (21-51); MEAN CORPUSCULAR HEMOGLOBIN 29.6 PG (27.0-31.0); MEAN CORPUSCULAR HGB CONC 32.6 g/dL (33.0-36.5); MEAN CORPUSCULAR VOLUME 90.9 FL (78-98); MEAN PLATELET VOLUME 9.7 FL (7.4-10.4); MONOCYTES % (AUTO) 24.5 % (2-12); NEUTROPHILS # (AUTO) 2.8 X10'3 (1.8-7.7); PLATELET COUNT 91 X10'3 (140-440); RED BLOOD COUNT 4.08 X10'6 (4.70-6.10); RED CELL DISTRIBUTION WIDTH 17.2 % (11.5-14.5)
[2022-12-17 08:16] LABS: ALBUMIN 3.3 G/DL (3.4-5.0); ANION GAP 8 (8-16); BLOOD UREA NITROGEN 30 MG/DL (7-18); BUN/CREATININE RATIO 17.9 (10.0-20.0); CALCIUM 8.2 MG/DL (8.5-10.1); CHLORIDE 105 MMOL/L (99-107); CREATININE 1.68 MG/DL (0.60-1.10); GLUCOSE 107 MG/DL (70-104); POTASSIUM 4.4 MMOL/L (3.5-5.1); SODIUM 137 MMOL/L (135-145); eCRCL 39 ML/MIN; eGFR 40 ML/MIN
[2022-12-17] MEDS ORDERED: TRAM50TA2 PO (08:47)
[2022-12-17 08:58] VITALS: BP 148/88; PULSE 78; RESP 16; O2SAT 95
== END 2022-12-17 09:00 | disposition home or self-care (01) ==
LOC: ER 04:20
DX: I73.9 Peripheral vascular disease, unspecified (principal); G89.29 Other chronic pain; I10 Essential (primary) hypertension; J44.9 Chronic obstructive pulmonary disease, unspecified; E78.00 Pure hypercholesterolemia, unspecified; Z79.899 Other long term (current) drug therapy; Z79.82 Long term (current) use of aspirin
CPT/HCPCS: 80048; 85025; 93971; 96372; 99285; J1885